=== PATIENT | female | born 1990 | race Hispanic/Latino ===

== ENCOUNTER 2023-12-06 18:45 | Observation (INO) | payer BC ==
[2023-12-06 19:41] VITALS: BMI 33.0
[2023-12-07 16:17] VITALS: BP 119/79; TEMP 98.1
== END 2023-12-07 19:15 | disposition home or self-care (01) ==
LOC: CSHTELE 18:45 → INTOOBSV 18:45
PROVIDERS: ADMIT Internal Medicine; ATTEND Emergency Medicine
PROC: B246ZZZ Ultrasonography of Right and Left Heart (ICD-10-PCS; principal; 2023-12-07)
DX: R07.89 Other chest pain (principal); R06.02 Shortness of breath; E03.9 Hypothyroidism, unspecified; F41.9 Anxiety disorder, unspecified; I10 Essential (primary) hypertension; E66.01 Morbid (severe) obesity due to excess calories; R55 Syncope and collapse; E78.5 Hyperlipidemia, unspecified; Z98.51 Tubal ligation status; Z87.59 Personal history of other complications of pregnancy, childbirth and the puerperium; Z68.33 Body mass index [BMI] 33.0-33.9, adult
CPT/HCPCS: 36415; 80061; 83735; 84439; 84443; 85379; 93005; 93010; 93306; G0378; G0379